=== PATIENT | female | born 1955 | race Caucasian/White ===

== ENCOUNTER → 2018-08-25 14:17 | Outpatient (CLI) | payer OTHER, SELFPAY ==
[2018-07-22 15:56] VITALS: BMI 38.6
--- NOTE | 2018-08-25 14:28 | US_ITS ---
STUDY: ULTRASOUND OF THE FEMALE PELVIS - COMPLETE REASON FOR EXAM: Female, 63 years old. Postmenopausal bleeding TECHNIQUE: Transabdominal and Transvaginal TECHNICAL QUALITY: Adequate. COMPARISON: None. FINDINGS: The uterus is anteverted and is in a midline position. The uterus measures 9.2 x 5.6 x 5.1 cm. Normal uterine cervix. The endometrium measures 4 mm in thickness, and is hyperechoic. There is no demonstrated endometrial mass. There is a 1.8 x 1.5 x 1.47 m fibroid. I.U.D. - The patient does not have an I.U.D. The right ovary is visualized. The right ovary measures 2.1 x 2.1 x 1.5 cm. There is no right ovarian cyst or ovarian mass. There is no visualized right adnexal mass or complex lesion. There is normal arterial and normal venous vascularity. The left ovary is not visualized There is no fluid in the cul-de-sac. The bladder sonographically normal US/Transvaginal Non- IMPRESSION: Sonographically normal endometrium at 4 mm. Small uterine fibroid No suspicious adnexal mass or free fluid Electronically Signed: Daniel Angulo MD at 18:17 EDT , Service support ,
--- NOTE | 2018-08-25 14:28 | US_ITS ---
STUDY: ULTRASOUND OF THE FEMALE PELVIS - COMPLETE REASON FOR EXAM: Female, 63 years old. Postmenopausal bleeding TECHNIQUE: Transabdominal and Transvaginal TECHNICAL QUALITY: Adequate. COMPARISON: None. FINDINGS: The uterus is anteverted and is in a midline position. The uterus measures 9.2 x 5.6 x 5.1 cm. Normal uterine cervix. The endometrium measures 4 mm in thickness, and is hyperechoic. There is no demonstrated endometrial mass. There is a 1.8 x 1.5 x 1.47 m fibroid. I.U.D. - The patient does not have an I.U.D. The right ovary is visualized. The right ovary measures 2.1 x 2.1 x 1.5 cm. There is no right ovarian cyst or ovarian mass. There is no visualized right adnexal mass or complex lesion. There is normal arterial and normal venous vascularity. The left ovary is not visualized There is no fluid in the cul-de-sac. The bladder sonographically normal US/Pelvic (Non ) IMPRESSION: Sonographically normal endometrium at 4 mm. Small uterine fibroid No suspicious adnexal mass or free fluid Electronically Signed: Daniel Angulo MD at 18:17 EDT , Service support ,
[2018-08-25 16:09] LABS: Estradiol 25.7 pg/mL; Follicle Stimulating Hormone 33.4 mIU/mL
== END ==
PROVIDERS: Family Provider Nurse Practitioner Family; PCP Nurse Practitioner Family; Referring Provider Obstetrics & Gynecology; Visit Provider Obstetrics & Gynecology
DX: N95.0 Postmenopausal bleeding (principal)
CPT/HCPCS: 36415; 76830; 76856; 82670; 83001; 93976

== ENCOUNTER → 2018-08-27 16:38 | Outpatient (CLI) | payer OTHER, SELFPAY ==
--- NOTE | 2018-08-27 | EMB_PTH ---
PATIENT: TERRI ELLIOTT LOC: [facility] U#:[id number] AGE/SX: 69/F ROOM: RE08/27/[address]: Dr. 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 KATELIN:yoanna 08/29/18 MICROSCOPIC DESCRIPTION Slides are reviewed. GROSS DESCRIPTION Received is one container labeled with the patient's name and not further designated. The specimen consists of multiple fragments of hemorrhagic soft tissue that in aggregate measure 2 x 0.5 x 0.1 cm. The specimen is totally submitted in one cassette. / SJ:yoanna 08/28/18 TC:5 CPT: 65007
[2018-08-27 08:18] VITALS: BMI 38.6
== END ==
PROVIDERS: Family Provider Nurse Practitioner Family; PCP Nurse Practitioner Family; Referring Provider Obstetrics & Gynecology; Visit Provider Obstetrics & Gynecology
DX: N93.9 Abnormal uterine and vaginal bleeding, unspecified (principal)
CPT/HCPCS: 88305

== ENCOUNTER 2018-10-30 07:26 | Day surgery (SDC) | payer OTHER, SELFPAY ==
[2018-08-27 08:18] VITALS: BMI 38.6
--- NOTE | 2018-10-30 | EMB_PTH ---
PATIENT: TERRI ELLIOTT LOC: [facility] [place] U#:[id number] AGE/SX: 63/F ROOM: RE10/30/[address]: Dr. Evy Trinidad MD : 1955 BED: DIS: 10/30/2018 SPEC #: [id number] RECD: 10/30/18 13:39 STATUS: PERI REQ #: [id number] IFEANYI: 10/30/18 00:[address]: Evy Trinidad DEPT: SURGICAL PATHOLOGY RECD BY: Avtar Negro ENTERED: 10/30/18 13:39 SP TYPE: ENDOM BX/C OT DR: ROSALINA Richter Tissues: Endometrium, NOS Procedures: Surgery Specimen Level IV HEADER OPERATION: Hysteroscopy, dilation and curettage, fibroid resection PRE-OP DIAGNOSIS: Postmenopausal bleeding TISSUE SUBMITTED: Endometrial curettings, polyp, fibroid MICROSCOPIC DIAGNOSIS Endometrial curettings and polyp, biopsy: Fragments of benign endometrial polyp with simple hyperplasia without atypia. Rare fragments of benign superficial ectocervix and endocervix. Fragments of benign myometrial tissue. AM:yoanna 10/31/18 MICROSCOPIC DESCRIPTION Slides are reviewed. GROSS DESCRIPTION Received in fixative is one container labeled with the patient's name and designated endometrial curettings, polyp, fibroid. The specimen container has two specimens included. The first is characterized by a white specimen bag containing multiple medrano-pink fragments of soft tissue measuring in aggregate 1.2 x 1 x 0.5 cm. The second specimen consists of a pad with several medrano-pink fragments of soft tissue measuring in aggregate 1.2 x 1 x 0.4 cm. The specimen is totally submitted in three cassettes. / CE:yoanna 10/30/18 TC: 5 [facility]: [id number]
--- NOTE | 2018-10-30 07:37 | EKG12_ITS ---
Test Reason : PRE-OP Blood Pressure : / mmHG Vent. Rate : 077 BPM Atrial Rate : 077 BPM P-R Int : 134 ms QRS Dur : 090 ms QT Int : 418 ms P-R-T Axes : 040 -02 029 degrees QTc Int : 473 ms Normal sinus rhythm Normal ECG No previous ECGs available Confirmed by GERARDO ZAVALETA ([id number]), society editor ANDREE RODRÍGUEZ ([id number]) on 11/05/2018 1:03:23 PM Referred By: Evy Trinidad Confirmed By:LI ZAVALETA
[2018-10-30 07:46] VITALS: BP 135/67; PULSE 78; RESP 16; TEMP 36.3; O2SAT 97; BMI 39.2
[2018-10-30 08:03] LABS: Hematocrit 39.9 % (37-47); Hemoglobin 13.2 g/dl (12.0-15.0); Mean Corp Hgb Conc 33.1 g/gl (32-36); Mean Corpuscular Volume 87.7 fL (81-99); Mean Platelet Vol. 10.5 fl (6.2-12.0); Platelet Count 346 K/mm3 (150-450); RBC Distribution Width CV 12.6 % (11.6-14.6); RBC Distribution Width SD 39.7 fl (35.1-43.9); Red Blood Count 4.55 M/mm3 (4.2-5.4); White Blood Count 7.6 K/mm3 (4.4-11.0)
--- NOTE | 2018-10-30 08:03 | PCM.HPOB.BLA ---
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 Accountant Required: No Is patient in pain?: No Allergies No Known Allergies Allergy (Verified 10/17/18 11:08) Medications levothyroxine 100 mcg tablet 100 mcg PO DAILY 07/22/18 [History Confirmed 08/27/18] triamterene 50 mg capsule 50 mg PO DAILY 07/22/18 [History Confirmed 08/27/18] Is last menstrual period known: No Post menopausal: Yes Patient : No : No [facility] Medical History Thyroid disorder (Acute) Surgical History H/O dilation and curettage (Acute) History of delivery (Acute) History of lithotripsy (Acute) History of thyroidectomy (Acute) Family History Father Cancer leukemia Social History Smoking Status: Never smoker alcohol intake: never substance use type: does not use caffeine: Yes what type of physical activity do you participate in: walking seatbelt use: always do you feel safe at home: Yes additional social history: 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 she has simple hyperplasia without atypia. she has had postmenopausal bleeidng. she is having some cyclic breast symptoms but has an elevated fsh and low estradiol and has been postmenopausal bleeding. Female Reproductive History Questions: Metorrhagia: Yes Pregancy History 4 Elective abortions Hx Para 2 Spontaneous abortions Hx # Term Pregnancies Ectopic pregnancies Hx # Pregnancies Multiple births # of living children Past Pregnancies Del. Date Name GA/Weeks Outcome Route Bth Weight Infant Gen Labor Lgth Anesthesia Del Locatn Provider FOB Unknown 1983 Mikayla live - full term Unknown 1991 Carolyne live - full term ROS Const Constitutional: Denies fatigue, fever(s), headache(s), increased appetite, poor appetite, weight gain or weight loss Cardio Card: Denies chest pain Resp Resp: Denies cough or dyspnea GI GI: Reports as per HPI; denies abdominal pain, constipation, nausea or vomiting : Reports as per HPI; denies difficulty urinating, painful urination, urinary frequency, urinary incontinence, urinary hesitancy, urinary urgency, vaginal discharge, vaginal dryness, vaginal odor or vaginal itching Exam Const General: cooperative, healthy appearing, comfortable, no acute distress, well developed Nutritional Appearance: average body habitus Orientation: alert [facility] Head: normal to inspection, normocephalic Neck Neck: normal visual inspection, trachea midline Thyroid: thyroid normal Resp Effort & Inspection: normal respiratory effort GI Inspection: normal to inspection, non-distended Palpation: soft, no hepatosplenomegaly General: bladder normal to palpation External Female Exam: normal external appearance, normal appearance of the urethra Urethra: normal appearance of the urethra, normal palpation, no discharge Speculum Exam - Vagina: normal appearance of the vagina, normal vaginal discharge Speculum Exam - Cervix: normal appearance of the cervix, nontender Bimanual Exam- Vagina & Uterus: normal bimanual exam, uterine size normal, bladder normal to palpation, uterine shape normal, No cervical tenderness, uterine mobility normal, uterine consistency normal, normal cervical palpation, uterus non-tender Bimanual Exam- Adnexa, other: normal adnexae, adnexae mobile, no adnexal masses, pelvic support normal Pelvic Support: normal Skin General: no rashes or lesions noted Coding Level of Care Code No Charge UPDATE- I have seen the patient and performed any clinically relevant updates to the history and physical exam. Evy Trinidad MD
[2018-10-30 08:05] LABS: Scan Indicated on CBC? Y/N NO
--- NOTE | 2018-10-30 09:54 | PCM.OPRPT ---
Problem List (1) Postmenopausal bleeding Status: Acute Comment: check bloodwork and ultrasound, EMB or d and c depending on us Report of Operation Date of Procedure: 10/30/18 Pre-Operative Diagnosis: Postmenopausal bleeding Post-Operative Diagnosis: same Surgery/Procedure Performed:: D&C hysteroscopy endometrial polypectomy resection of fibroid Description of Surgical Findings:: Right uterine wall grade 2 myoma Type of Anesthesia:: Local MAC Special Medications: none Specimen's removed: Endometrial curettings polyp and fibroid Drains: None Estimated Blood Loss (mL): 25 cc Fluids Replaced: Crystalloid Description of Procedure: Patient was prepped and draped in a normal sterile fashion under MAC anesthesia. A weighted speculum was placed in the vagina and the anterior lip of the cervix was grasped with a single-tooth tenaculum. A paracervical block was placed with 1% lidocaine. Cervix was progressively dilated to allow passage of a 5 mm hysteroscope. The lining was fully visualized and noted to have a right endometrial polyp and grade 2 submucosal fibroid. Uterine sounded to 8 cm. Using the symphion device, the polyp was first directly removed and then the fibroid and lining and remainder of the polyp stalk was progressively removed without complications. Direct visual curettage was performed using the device , and all specimens were sent to pathology. All instruments were removed from the vagina and excellent hemostasis was noted. Patient was awoken and taken to recovery in stable condition. Grafts/Implants Used: None - Complications None
--- NOTE | 2018-10-30 09:58 | DCINST_ITS ---
Discharge Diet: No Restrictions Discharge Activity: Return to Normal Activity, May Shower, May Take a Tub Bath Allergies/Adverse Reactions: Allergies Penicillins [PCN] Allergy (Verified 10/23/18 09:07) Unknown HAPPENED A CHILD Medications to take at Discharge levothyroxine 100 mcg tablet 100 mcg PO DAILY 07/22/18 triamterene 50 mg capsule 50 mg PO DAILY 07/22/18 Primary Care Physician: Mikayla Mata NP-C [Primary Care Provider] - Test Results: Test results from this visit will be discussed in further detail at your follow- up appointment, if applicable. Please Follow Up With: Evy Trinidad MD - [phone]
[2018-10-30 10:04] VITALS: BP 126/68; BP 135/67; PULSE 71; RESP 18; TEMP 36.2; O2SAT 96
[2018-10-30 10:11] VITALS: BP 122/67; BP 135/67; PULSE 69; RESP 18; TEMP 36.2; O2SAT 94
[2018-10-30 10:55] VITALS: BP 135/67
== END 2018-10-30 11:00 | disposition home or self-care (01) ==
LOC: SDC 07:28 → AC 07:32
PROVIDERS: Family Provider Nurse Practitioner Family; PCP Nurse Practitioner Family; Referring Provider Obstetrics & Gynecology; Visit Provider Obstetrics & Gynecology
PROC: 0UDB8ZZ Extraction of Endometrium, Via Natural or Artificial Opening Endoscopic (ICD-10-PCS; CPT 58558; principal; 2018-10-30 08:55)
DX: D25.0 Submucous leiomyoma of uterus (principal); N84.0 Polyp of corpus uteri; N85.01 Benign endometrial hyperplasia; E07.9 Disorder of thyroid, unspecified; N95.0 Postmenopausal bleeding; Z79.899 Other long term (current) drug therapy; Z87.442 Personal history of urinary calculi
CPT/HCPCS: 00952; 58558; 85027; 86850; 86900; 88305; 93005; J7120

== ENCOUNTER → 2019-06-17 13:09 | Outpatient (CLI) | payer OTHER, SELFPAY ==
--- NOTE | 2019-06-17 | EMB_PTH ---
PATIENT: TERRI ELLIOTT LOC: [facility] U#:[id number] AGE/SX: 69/F ROOM: RE06/17/[address]: Dr. Evy Trinidad MD : 1955 BED: DIS: SPEC #: [id number] RECD: 06/17/19 12:34 STATUS: PERI BECCA #: [id number] IFEANYI: 06/17/19 00:[address]: Evy Trinidad DEPT: SURGICAL PATHOLOGY RECD BY: Judith Fragoso Tissues: Endometrium, NOS Procedures: Surgery Specimen Level IV HEADER OPERATION: Endometrium biopsy PRE-OP DIAGNOSIS: Thickened endometrium TISSUE SUBMITTED: Endometrium biopsy MICROSCOPIC DIAGNOSIS Endometrium, biopsy: Strips of benign superficial inactive endometrium. Focal pseudo decidual change noted. AM:yoanna 06/18/19 COMMENT Case has been reviewed in consultation with Dr. Miles who concurs with the above diagnosis. IDC:SJ MICROSCOPIC DESCRIPTION Slides are reviewed. GROSS DESCRIPTION Received is one container labeled with the patient's name and not further designated. The specimen consists of multiple fragments of hemorrhagic soft tissue that in aggregate measure 2 x 0.5 x 0.1 cm. The specimen is totally submitted in one cassette. / KATELIN:yoanna 06/17/19 TC:5 CPT: 22698
[2019-06-17 08:08] VITALS: BMI 39.2
== END ==
PROVIDERS: Referring Provider Obstetrics & Gynecology; Visit Provider Obstetrics & Gynecology
DX: R93.89 Abnormal findings on diagnostic imaging of other specified body structures (principal)
CPT/HCPCS: 88305

== ENCOUNTER → 2019-12-02 | Outpatient (CLI) | payer OTHER, SELFPAY ==
--- NOTE | 2019-12-02 | EMB_PTH ---
PATIENT: TERRI ELLIOTT LOC: [facility] U#:[id number] AGE/SX: 64/F ROOM: RE12/02/[address]: Dr. Evy Trinidad MD : 1955 BED: DIS: 12/02/2019 SPEC #: [id number] RECD: 12/02/19 16:49 STATUS: PERI RERobe #: [id number] IFEANYI: 12/02/19 00:[address]: Evy Trinidad DEPT: SURGICAL PATHOLOGY RECD BY: Avtar Negro Tissues: Endometrium, NOS Procedures: Surgery Specimen Level IV HEADER OPERATION: Endometrial biopsy PRE-OP DIAGNOSIS: Endometrial hyperplasia TISSUE SUBMITTED: Endometrium MICROSCOPIC DIAGNOSIS Endometrium, biopsy: Weakly proliferative to inactive endometrium with focal cystic change. AM:yoanna 12/04/19 MICROSCOPIC DESCRIPTION Slides are reviewed. GROSS DESCRIPTION Received is one container labeled with the patient's name and not further designated. The specimen consists of multiple fragments of hemorrhagic soft tissue that in aggregate measure 2.5 x 0.5 x 0.1 cm. The specimen is totally submitted in one cassette. / KATELIN:yoanna 12/03/19 TC:5 CPT: 92885
[2019-12-02 09:10] VITALS: BMI 38.6
== END | disposition home or self-care (01) ==
PROVIDERS: Referring Provider Obstetrics & Gynecology; Visit Provider Obstetrics & Gynecology
DX: N85.8 Other specified noninflammatory disorders of uterus (principal)
CPT/HCPCS: 88305

== ENCOUNTER → 2020-01-21 | Outpatient (CLI) | payer OTHER, SELFPAY ==
[2020-01-21 08:43] VITALS: BMI 38.6
[2020-01-25 16:24] LABS: HPV APTIMA, High Risk Negative (Negative)
== END | disposition home or self-care (01) ==
LOC: LABSPEC 12:45
PROVIDERS: PCP Family Medicine; Referring Provider Obstetrics & Gynecology; Visit Provider Obstetrics & Gynecology
DX: Z12.4 Encounter for screening for malignant neoplasm of cervix (principal)
CPT/HCPCS: 87624; 88175; G0145

== ENCOUNTER → 2022-02-02 | Outpatient (CLI) | payer OTHER, SELFPAY ==
[2022-02-02 16:45] LABS: Estradiol 30.7 pg/mL; Follicle Stimulating Hormone 33.7 mIU/mL
[2022-02-11 14:15] LABS: Testosterone Free 1.1 pg/mL (0.0-4.2)
== END | disposition home or self-care (01) ==
LOC: LAB 13:39
PROVIDERS: PCP Family Medicine; Referring Provider Obstetrics & Gynecology; Visit Provider Obstetrics & Gynecology
DX: N95.1 Menopausal and female climacteric states (principal)
CPT/HCPCS: 36415; 82627; 82670; 83001; 84402; 82626